=== PATIENT | female | born 1945 | race Caucasian/White ===

== ENCOUNTER 2022-05-18 11:39 | Day surgery (SDC) | payer MEDICARE, OTHER ==
[~2022-05-18] VITALS: Ht 157.5 cm; Wt 51.1 kg
[~2022-05-18 11:39] MED LIST: Amlodipine Besy10 MG PO; CHOL10002 PO; ROZEREM PO; Spironolactone1 EACH PO; TOCO400 PO
[2022-05-18] MEDS ORDERED: CARB25 (12:05)
[2022-05-18] MEDS ORDERED: TRAM50 (12:05)
[2022-05-18] MEDS ORDERED: Lisinopril2.5 MG (12:05)
[2022-05-18] MEDS ORDERED: VENL37.5ER (12:05)
[2022-05-18] MEDS ORDERED: MULVITA (12:06)
[2022-05-18] MEDS ORDERED: CALCA500S6 (12:06)
[2022-05-18] MEDS ORDERED: FENO48 (12:06)
--- NOTE | 2022-05-18 12:39 | NUR ---
05/18/22 1239 Sol Butler THREE ATTEMPTS AT IV. FIRST ATTEMPT IN R FOREARM BY MA INFLITRATED. SECOND ATTEMPT IN R HAND BY MA VEIN ROLLED AWAY. THIRD ATTEMPT BY RN IN R HAND SUCESSFUL.
== END 2022-05-18 14:31 | disposition home or self-care (01) ==
LOC: ORSCSDS 11:39
PROVIDERS: Internal Medicine Gastroenterology
PROC: 0DBK8ZX Excision of Ascending Colon, Via Natural or Artificial Opening Endoscopic, Diagnostic (ICD-10-PCS; principal; 2022-05-18 13:00)
DX: Z12.11 Encounter for screening for malignant neoplasm of colon (principal); D12.2 Benign neoplasm of ascending colon; Z86.010 Personal history of colon polyps; Z80.0 Family history of malignant neoplasm of digestive organs; I10 Essential (primary) hypertension; Z85.3 Personal history of malignant neoplasm of breast
CPT/HCPCS: 88305; J2704; J7120

== ENCOUNTER → 2024-03-13 | Outpatient (CLI) | payer MEDICARE, OTHER ==
[~2024-03-13] MED LIST changes: +CALCA500S6; +CARB25; +FENO48; +Lisinopril2.5 MG; +MULVITA; +TRAM50; +VENL37.5ER
[2024-03-15 12:38] LABS: CALPROTECTIN,FECAL 81 ug/g (<=49)
== END | disposition home or self-care (01) ==
LOC: LAB SHORT 06:30 → LAB 06:30
PROVIDERS: Family Medicine
DX: A09 Infectious gastroenteritis and colitis, unspecified (principal)
CPT/HCPCS: 83993; 87015; 87045; 87046; 87205; 87899